=== PATIENT | male | born 1975 | race Caucasian/White ===

== ENCOUNTER 2017-08-08 02:31 | Emergency (ER) | payer OTHER ==
[2017-08-08 03:03] VITALS: TEMP 98.4
[2017-08-08] MEDS ORDERED: Sodium Chloride 0.9% 1,000 ML IV STA (03:27)
--- NOTE | 2017-08-08 03:30 | ED PDOC ---
Arrival/HPI - General Chief Complaint: Back Pain Time Seen by Provider: 08/08/17 03:27 - History of Present Illness Narrative History of Present Illness (Text): 08/08/17 03:29 41 year old male who denies any significant past medical history, presents to the emergency department complaining of intermittent right sided flank pain that began in the evening. He reports pain worsens when sitting. Patient also reports a couple episodes of vomiting, but denies any any fever, chills, chest pain, shortness of breath, nausea, diarrhea, urinary symptoms, back pain, neck pain, headache, dizziness, or any other complaints. Past Medical History - Provider Review Nursing Documentation Reviewed: Yes - Psychiatric Hx Substance Use: No Family/Social History - Physician Review Nursing Documentation Reviewed: Yes Family/Social History: No Known Family HX Smoking Status: Light Smoker < 10 Cigarettes Daily Hx Alcohol Use: No Hx Substance Use: No Allergies/Home Meds Allergies/Adverse Reactions: Allergies No Known Allergies Allergy (Verified 08/08/17 02:59) Review of Systems - Physician Review All systems were reviewed & negative as marked: Yes - Review of Systems Constitutional: absent: Fevers Cardiovascular: absent: Chest Pain Physical Exam Vital Signs Temp Pulse Resp BP Pulse Ox 08/08/17 03:00 98.4 F 56 L 18 155/75 H 99 Medical Decision Making ED Course and Treatment: 08/08/17 03:29 Impression: 41 year old male presents complaining of intermittent right flank associated with vomiting that began in the evening. Plan: -- CT Abd & Pelvis w/o contrast -- Labs -- IV Fluids, Toradol, Zofran Inj -- Urine Culture -- Urinalysis -- Reassess and disposition Progress Notes: 08/08/17 06:54 IMPRESSION: 1. Multiple nonobstructing calcifications in both kidneys measuring up to 3 mm in the right kidney. 2. No hydronephrosis or hydroureter. Patient appears better. Will discharge, f/u urology, take ibuprofren. Instructed to return to ED for worsening pain, vomiting, bleeding. - Lab Interpretations Lab Results: 08/08/17 03:37 08/08/17 03:37 Lab Results 08/08/17 03:37: Sodium 142, Potassium 4.0, Chloride 104, Carbon Dioxide 26, Anion Gap 16, BUN 13, Creatinine 0.7 L, Est GFR ( Amer) > 60, Est GFR ( Non-Af Amer) > 60, Random Glucose 141 H, Calcium 9.1, Total Bilirubin 0.1 L, AST 34, ALT 27, Alkaline Phosphatase 58, Total Protein 7.7, Albumin 4.6, Globulin 3.1, Albumin/Globulin Ratio 1.5 08/08/17 03:37: Urine Color Yellow, Urine Appearance Sl cloudy, Urine pH 5.5, Ur Specific [place] >= 1.030, Urine Protein Trace H, Urine Glucose (UA) Negative , Urine Ketones Trace H, Urine Blood Trace-intact H, Urine Nitrate Negative, Urine Bilirubin Negative, Urine Urobilinogen 0.2, Ur Leukocyte Esterase Negative , Urine RBC 2 - 5, Urine WBC 0 - 2, Ur Epithelial Cells 0 - 2, Urine Other Mucus 08/08/17 03:37: WBC 7.4, RBC 5.04, Hgb 13.1 L, Hct 39.6 L, MCV 78.6 L, MCH 26.0 , MCHC 33.1, RDW 14.2, Plt Count 433, MPV 9.7, Gran % 80.7 H, Lymph % (Auto) 17.1 L, Saline % (Auto) 1.8, Eos % (Auto) 0.1 L, Baso % (Auto) 0.3, Gran # 5.94, Lymph # (Auto) 1.3, Saline # (Auto) 0.1, Eos # (Auto) 0.0, Baso # (Auto) 0.02 I have reviewed the lab results: Yes - RAD Interpretation Radiology Orders: 08/08/17 03:27 ABD & PELVIS W/O PO OR IV CONT [CT] Stat - Medication Orders Current Medication Orders: Discontinued Medications Sodium Chloride (Sodium Chloride 0.9%) 1,000 mls @ 999 mls/hr IV .Q1H1M STA Stop: 08/08/17 04:27 Last Admin: 08/08/17 03:35 Dose: 999 mls/hr eMAR Start Stop Document 08/08/17 03:35 REY (Rec: 08/08/17 03:35 REY [id number]) Intravenous Solution Start Date 08/08/17 Start Time 03:35 End Date 08/08/17 End time 04:35 Total Infusion Time 60 Ketorolac Tromethamine (Toradol) 30 mg IVP STAT STA Stop: 05/22/18 03:28 Last Admin: 08/08/17 03:35 Dose: 30 mg MAR Pain Assessment Document 08/08/17 03:35 REY (Rec: 08/08/17 03:35 REY [id number]) Pain Reassessment Is this a pain reassessment? No IVP Administration Document 08/08/17 03:35 REY (Rec: 08/08/17 03:35 REY [id number]) Charges for Administration # of IVP Administrations 1 Ondansetron HCl (Zofran Inj) 8 mg IVP STAT STA Stop: 08/08/17 03:28 Last Admin: 08/08/17 03:35 Dose: 8 mg IVP Administration Document 08/08/17 03:35 REY (Rec: 08/08/17 03:35 REY [id number]) Charges for Administration # of IVP Administrations 1 - Scribe Statement The provider has reviewed the documentation as recorded by the Allison Abdul Provider Scribe Attestation: All medical record entries made by the Scribe were at my direction and personally dictated by me. I have reviewed the chart and agree that the record accurately reflects my personal performance of the history, physical exam, medical decision making, and the department course for this patient. I have also personally directed, reviewed, and agree with the discharge instructions and disposition. Disposition/Present on Arrival - Present on Arrival Any Indicators Present on Arrival: No History of DVT/PE: No History of Uncontrolled Diabetes: No Urinary Catheter: No History of Decub. Ulcer: No History Surgical Site Infection Following: None - Disposition Have Diagnosis and Disposition been Completed?: Yes Diagnosis: Back pain Disposition: HOME/ ROUTINE Disposition Time: 06:54 Patient Plan: Discharge Condition: STABLE Discharge Instructions (ExitCare): Flank Pain Prescriptions: Ibuprofen [Motrin] 600 mg PO Q6 #25 tab Ondansetron ODT [Zofran ODT] 4 mg PO Q8 #12 odt Referrals: Zahra Watson MD [Staff Provider] - Follow up with primary Forms: [employer] (Slovak)
[2017-08-08 04:09] LABS: BASO # 0.02 K/mm3 (0.0-2.0); BASO % 0.3 % (0.0-3.0); EOS % 0.1 % (1.5-5.0); GRAN # 5.94 (1.4-6.5); GRAN % 80.7 % (50.0-68.0); HEMOGLOBIN 13.1 g/dL (14.0-18.0); LYMPH # 1.3 (1.2-3.4); LYMPH % 17.1 % (22.0-35.0); MEAN CELL VOLUME 78.6 fl (80.0-105.0); MEAN CORPUSCULAR HGB CONC 33.1 g/dl (31.0-37.0); MEAN PLATELET VOLUME 9.7 fl (7.0-11.0); MONO # 0.1 (0.1-0.6); MONO % 1.8 % (1.0-6.0); RBC 5.04 10^6/uL (3.5-6.1); RED CELL DISTRIBUTION WIDTH 14.2 % (11.5-14.5); WHITE BLOOD COUNT 7.4 10^3/ul (4.5-11.0)
[2017-08-08 04:24] LABS: ALB/GLOB RATIO 1.5 (1.1-1.8); ALBUMIN 4.6 g/dL (3.0-4.8); ALT/SGPT 27 U/L (7-56); AST/SGOT 34 U/L (17-59); BLOOD UREA NITROGEN 13 mg/dL (7-21); CALCIUM 9.1 mg/dL (8.4-10.5); GFR AFRICAN-AMERICAN > 60; GFR NON-AFRICAN AMERICAN > 60
[2017-08-08 04:32] LABS: PH,URINE 5.5 (4.7-8.0); URINE BILIRUBIN NEGATIVE (NEGATIVE); URINE BLOOD TRACE-INTACT (NEGATIVE); URINE GLUCOSE (UA) NEGATIVE (NEGATIVE); URINE LEUKOCYTE ESTERASE NEGATIVE Leu/uL (NEGATIVE); URINE PROTEIN TRACE mg/dL (<30 mg/dL); URINE UROBILINOGEN 0.2 E.U./dL (<1 E.U./dL)
[2017-08-08 04:33] LABS: URINE APPEARANCE SL CLOUDY (CLEAR); URINE COLOR YELLOW (YELLOW)
[2017-08-08 04:43] LABS: URINE EPITHELIAL CELLS 0 - 2 /hpf (0-5); URINE WBC 0 - 2 /hpf (0-6)
[2017-08-08 07:16] VITALS: BP 142/86; PULSE 82; RESP 16; O2SAT 100
--- NOTE | 2017-08-08 11:08 | CT ---
PROCEDURE: CT Abdomen and Pelvis without intravenous contrast HISTORY: R flank pain COMPARISON: None. TECHNIQUE: Without contrast. Contrast dose: Radiation dose: Total exam DLP = 261 mGy-cm. This CT exam was performed using one or more of the following dose reduction techniques: Automated exposure control, adjustment of the mA and/or kV according to patient size, and/or use of iterative reconstruction technique. FINDINGS: LOWER THORAX: Unremarkable. LIVER: Unremarkable. No gross lesion or ductal dilatation. GALLBLADDER AND BILE DUCTS: Unremarkable. PANCREAS: Unremarkable. No gross lesion or ductal dilatation. SPLEEN: Unremarkable. ADRENALS: Unremarkable. No mass. KIDNEYS AND URETERS: Bilateral nonobstructing renal stones are seen measuring less than 3 mm VASCULATURE: Unremarkable. No aortic aneurysm. BOWEL: Unremarkable. No obstruction. No gross mural thickening. APPENDIX: Unremarkable. Normal appendix. PERITONEUM: Unremarkable. No free fluid. No free air. LYMPH NODES: Unremarkable. No enlarged lymph nodes. BLADDER: Unremarkable. REPRODUCTIVE: Unremarkable. BONES: No acute fracture. OTHER FINDINGS: The report concurs with the preliminary [facility] report IMPRESSION: Nephrolithiasis with small less than 3 mm stones in both kidneys. No evidence of urolithiasis. No acute intra-abdominal finding
== END 2017-08-08 07:16 | disposition home or self-care (01) ==
LOC: ED 02:31
DX: M54.9 Dorsalgia, unspecified (principal)
CPT/HCPCS: 74176; 80053; 81001; 85025; 87086; 96361; 96374; 96375; 99282; J1885; J2405; J7040